=== PATIENT | male | born 1955 | race Caucasian/White ===

== ENCOUNTER 2017-02-12 07:41 | Inpatient (IN) ==
[2017-02-12] MEDS ORDERED: Aspirin 81 MG TAB.CHEW PO ONE (07:51)
--- NOTE | 2017-02-12 07:54 | Emergency Department Note ---
Disposition Clinical Impression: Chest pain Qualifiers: Chest pain type: unspecified Qualified Code(s): R07.9 - Chest pain, unspecified Disposition: Admitted As Inpatient Condition: Good Time of Disposition: 11:12 Chest Pain HPI - General Chief Complaint: ED Chest Pain Stated Complaint: chest pain, back pain Time Seen by Provider: 02/12/17 07:51 Source: patient Vital Signs Reviewed: Yes Nursing Notes Reviewed: Yes - History of Present Illness HPI Narrative: 61-year-old male former smoker c/o chest pain. He mentions the pain started around dinner times, but stated he was actually not feeling that well before dinner. He mentions he did not eat much food at dinner. He describes it as pressure. He states when it started it was 6 out of 10, however he states his gradually worsening and is now 8 out of 10. He mentions he also has pressurre like pain in his back. He mentions nothing is making it better, and has not worsened with exertion. He states it has not migrated, or radiated. He mentions he has a 6/10 headache that started gradually around the same time. He is accompanied by his . They attempted to be seen at the [facility], which was closed, however the [facility] aftercare line advised squad to this emergency Department by micheal. He denies any upper extremity or neck pain, dyspnea, diaphoresis, nausea, abdominal pain. Severity scale (1-10): 8 - Related Data Allergies Allergy/AdvReac Type Severity Reaction Status Date / Time No Known Allergies Allergy Verified 02/12/17 07:51 All systems ED: reviewed and negative except as stated. Constitutional: Denies: fever, chills Eyes: Denies: eye pain ENT ED: Denies: ear pain Cardiovascular: Reports: as per HPI. Denies: dyspnea on exertion, orthopnea Respiratory: Denies: cough, dyspnea Gastrointestinal: Denies: abdominal pain, nausea, vomiting Genitourinary: Denies: dysuria Musculoskeletal: Reports: as per HPI. Denies: joint swelling, arthralgia Integumentary: Denies: rash Neurological: Reports: as per HPI. Denies: weakness, numbness, paresthesias Endocrine: Denies: fatigue Hematological/Lymphatic: Reports: other (BLE swelling chronic). Denies: easy bleeding Allergic/Immunologic: Denies: facial swelling Chest Pain PMH - Past Medical History Medical history: Reports: GERD, hyperlipidemia, hypertension, thyroid disease, other Psychiatric history: Reports: bipolar - Social History Smoking Status: Former smoker (quit 25 years ago) Alcohol use: Reports: occasionally Drug use: Reports: none Physical Exam - General Limitations: no limitations General appearance: alert, in no apparent distress - Head Head exam: normocephalic - Eye Eye exam: Present: EOMI - ENT ENT exam: mucous membranes moist - Neck Neck exam: Present: full ROM - Chest Chest inspection: Present: symmetric chest wall rise - Respiratory Respiratory exam: Present: normal lung sounds bilaterally. Absent: respiratory distress - Cardiovascular Cardiovascular exam: Present: regular rate, normal rhythm - Abdominal Exam Abdominal exam: Present: soft, Non-Tender - Extremities Exam Extremities exam: Present: normal inspection, full ROM, other - Back Exam Back exam: Present: full ROM - Neurological Exam Neurological exam: Present: alert, oriented X3 - Psychiatric Psychiatric exam: Present: normal affect, normal mood - Skin Skin exam: Present: warm, dry, intact, normal color. Absent: rash, cyanosis, diaphoresis Course Course Narrative: 61-year-old male arrives via squad to exam room with c/o of chest pain and back pain. He describes gradually worsening chest pressure over his substernal chest back that started yesterday around dinner time. Pt also mentions h/o of BLE swelling. Patient seen and examined. He is in no acute distress does not look toxic. He is declining pain medications. Vital signs within normal limits. Patient also complains of a headache. He is requesting Tylenol. Also given an aspirin.Workup initiated. - Reevaluation(s) Reevaluation #1: Pt is requesting pain medicine now. Also in discussion, pt mentions he had a negative stress test at [facility] approx 10 years ago, but denies any heart cath, h/o CAD, NE. SL nitro given with no relief. IV pain meds ordered. Time: 08:41 Reevaluation #2: Patient has received morphine, pain improving. Vitals stable. Pt has had no recent cardiac evaluation. Last sterss test 10 years ago. I discussed patient with Dr. Hernández who did see patient, who advised admission for cardiac rule out Time: 09:06 Reevaluation #3: 10:58 Pt discussed with and accepted by hospitalist Dr. Ameda. Time: 10:59 Vital Signs Temperature 98.3 F 02/12/17 07:42 Pulse Rate 58 02/12/17 07:42 Respiratory Rate 17 02/12/17 07:42 Blood Pressure 154/100 02/12/17 07:42 O2 Sat by Pulse Oximetry 98 02/12/17 07:42 Temperature 98.2 F 02/12/17 11:36 Pulse Rate 57 02/12/17 11:36 Respiratory Rate 16 02/12/17 11:44 Blood Pressure 145/90 02/12/17 11:44 O2 Sat by Pulse Oximetry 97 02/12/17 11:36 Oxygen Delivery Oxygen Delivery Room Air Chest Pain - MDM Narrative Medical decision making narrative: 61-year-old male had presented with 2 day history of worsening chest pain. Patient was in no acute distress. His vital stable. EKG showed a complete right bundle-branch block, otherwise no ST changes. Chest x-ray negative. He did describe his pain is worsening since yesterday. With radiation to his back. He has had no recent cardiac evaluations, denies any history of CAD, [place]. Patient's workup and history was discussed with Dr. Hernández who did see patient and advised for admission for cardiac rule out. Patient was septic by hospitalist. All Lab Results (24 Hours) 02/12/17 02/12/17 02/12/17 Range/Units 07:56 07:56 07:56 WBC 6.9 (4.3-11.1) K/mcL RBC 5.65 H (4.19-5.50) M/mcL Hgb 15.4 (12.9-16.9) g/dL Hct 44.0 (37.5-50.1) % MCV 77.9 L (83.0-100.0) fL MCH 27.3 L (28.0-33.3) pg MCHC 35.0 (31.6-35.5) g/dL RDW 13.7 (11.5-14.5) % Plt Count 224 (140-400) K/mcL MPV 9.6 (9.4-12.4) fL Immature Gran % 0.3 (0-4) % Seg Neutrophils % 70.9 % Lymphocytes % 20.5 % Monocytes % 5.5 % Eosinophils % 2.2 % Basophils % 0.6 % Neutrophils # 4.9 (1.6-8.9) K/mcL Lymphocytes # 1.4 (0.6-4.6) K/mcL Monocytes # 0.4 (0.0-1.3) K/mcL Eosinophils # 0.2 (0.0-0.6) K/mcL Basophils # 0.0 (0.0-0.2) K/mcL PT 11.7 (9.4-12.1) Seconds INR 1.1 APTT 30.9 (26.0-36.0) Seconds Sodium (136-145) mEq/L Potassium (3.5-4.5) mEq/L Chloride (98-109) mEq/L Carbon Dioxide (19-29) mEq/L BUN (8-26) mg/dL Creatinine (0.72-1.25) mg/dL Est GFR ( Amer) (> 60) Est GFR (Non-Af Amer) (> 60) BUN/Creatinine Ratio (6-26) Glucose (70-99) mg/dL Calculated Osmolality (280-300) Calcium (8.6-10.8) mg/dL Total Bilirubin (0.2-1.2) mg/dL Direct Bilirubin (0.0-0.5) mg/dL Indirect Bilirubin (0.0-1.2) mg/dL AST (5-34) Units/L ALT (0-55) Units/L Alkaline Phosphatase (38-126) Units/L Troponin I (0-0.03) ng/mL B-Natriuretic Peptide 20 (0-100) pg/mL Serum Total Protein (6.0-8.3) g/dL Albumin (3.5-5.0) g/dL Globulin (2.4-3.5) g/dL Albumin/Globulin Ratio (1.1-2.2) Lipase (8-78) Units/L 02/12/17 02/12/17 Range/Units 07:56 07:56 WBC (4.3-11.1) K/mcL RBC (4.19-5.50) M/mcL Hgb (12.9-16.9) g/dL Hct (37.5-50.1) % MCV (83.0-100.0) fL MCH (28.0-33.3) pg MCHC (31.6-35.5) g/dL RDW (11.5-14.5) % Plt Count (140-400) K/mcL MPV (9.4-12.4) fL Immature Gran % (0-4) % Seg Neutrophils % % Lymphocytes % % Monocytes % % Eosinophils % % Basophils % % Neutrophils # (1.6-8.9) K/mcL Lymphocytes # (0.6-4.6) K/mcL Monocytes # (0.0-1.3) K/mcL Eosinophils # (0.0-0.6) K/mcL Basophils # (0.0-0.2) K/mcL PT (9.4-12.1) Seconds INR APTT (26.0-36.0) Seconds Sodium 140 (136-145) mEq/L Potassium 3.7 (3.5-4.5) mEq/L Chloride 106 (98-109) mEq/L Carbon Dioxide 25 (19-29) mEq/L BUN 9 (8-26) mg/dL Creatinine 1.02 (0.72-1.25) mg/dL Est GFR ( Amer) > 60 (> 60) Est GFR (Non-Af Amer) > 60 (> 60) BUN/Creatinine Ratio 9 (6-26) Glucose 119 H (70-99) mg/dL Calculated Osmolality 290 (280-300) Calcium 9.9 (8.6-10.8) mg/dL Total Bilirubin 0.7 (0.2-1.2) mg/dL Direct Bilirubin 0.3 (0.0-0.5) mg/dL Indirect Bilirubin 0.4 (0.0-1.2) mg/dL AST 18 (5-34) Units/L ALT 18 (0-55) Units/L Alkaline Phosphatase 75 (38-126) Units/L Troponin I 0.00 (0-0.03) ng/mL B-Natriuretic Peptide (0-100) pg/mL Serum Total Protein 7.6 (6.0-8.3) g/dL Albumin 4.1 (3.5-5.0) g/dL Globulin 3.5 (2.4-3.5) g/dL Albumin/Globulin Ratio 1.2 (1.1-2.2) Lipase 29 (8-78) Units/L Chest X-Ray 02/12/17 07:52 IMPRESSION: No acute cardiopulmonary process. D/ / 02/12/2017 08:46:06 Fredy Dallas MD / courtyer Interpreting Provider: Fredy Dallas MD - Lab Data Lab results reviewed: Yes I reviewed the patient's lab results. Result diagrams: 02/12/17 07:56 02/12/17 07:56 Lab Results 02/12/17 02/12/17 02/12/17 Range/Units 07:56 07:56 07:56 WBC 6.9 (4.3-11.1) K/mcL RBC 5.65 H (4.19-5.50) M/mcL Hgb 15.4 (12.9-16.9) g/dL Hct 44.0 (37.5-50.1) % MCV 77.9 L (83.0-100.0) fL MCH 27.3 L (28.0-33.3) pg MCHC 35.0 (31.6-35.5) g/dL RDW 13.7 (11.5-14.5) % Plt Count 224 (140-400) K/mcL MPV 9.6 (9.4-12.4) fL Immature Gran % 0.3 (0-4) % Seg Neutrophils % 70.9 % Lymphocytes % 20.5 % Monocytes % 5.5 % Eosinophils % 2.2 % Basophils % 0.6 % Neutrophils # 4.9 (1.6-8.9) K/mcL Lymphocytes # 1.4 (0.6-4.6) K/mcL Monocytes # 0.4 (0.0-1.3) K/mcL Eosinophils # 0.2 (0.0-0.6) K/mcL Basophils # 0.0 (0.0-0.2) K/mcL PT 11.7 (9.4-12.1) Seconds INR 1.1 APTT 30.9 (26.0-36.0) Seconds Sodium (136-145) mEq/L Potassium (3.5-4.5) mEq/L Chloride (98-109) mEq/L Carbon Dioxide (19-29) mEq/L BUN (8-26) mg/dL Creatinine (0.72-1.25) mg/dL Est GFR ( Amer) (> 60) Est GFR (Non-Af Amer) (> 60) BUN/Creatinine Ratio (6-26) Glucose (70-99) mg/dL Calculated Osmolality (280-300) Calcium (8.6-10.8) mg/dL Total Bilirubin (0.2-1.2) mg/dL Direct Bilirubin (0.0-0.5) mg/dL Indirect Bilirubin (0.0-1.2) mg/dL AST (5-34) Units/L ALT (0-55) Units/L Alkaline Phosphatase (38-126) Units/L Troponin I (0-0.03) ng/mL B-Natriuretic Peptide 20 (0-100) pg/mL Serum Total Protein (6.0-8.3) g/dL Albumin (3.5-5.0) g/dL Globulin (2.4-3.5) g/dL Albumin/Globulin Ratio (1.1-2.2) Lipase (8-78) Units/L 02/12/17 02/12/17 Range/Units 07:56 07:56 WBC (4.3-11.1) K/mcL RBC (4.19-5.50) M/mcL Hgb (12.9-16.9) g/dL Hct (37.5-50.1) % MCV (83.0-100.0) fL MCH (28.0-33.3) pg MCHC (31.6-35.5) g/dL RDW (11.5-14.5) % Plt Count (140-400) K/mcL MPV (9.4-12.4) fL Immature Gran % (0-4) % Seg Neutrophils % % Lymphocytes % % Monocytes % % Eosinophils % % Basophils % % Neutrophils # (1.6-8.9) K/mcL Lymphocytes # (0.6-4.6) K/mcL Monocytes # (0.0-1.3) K/mcL Eosinophils # (0.0-0.6) K/mcL Basophils # (0.0-0.2) K/mcL PT (9.4-12.1) Seconds INR APTT (26.0-36.0) Seconds Sodium 140 (136-145) mEq/L Potassium 3.7 (3.5-4.5) mEq/L Chloride 106 (98-109) mEq/L Carbon Dioxide 25 (19-29) mEq/L BUN 9 (8-26) mg/dL Creatinine 1.02 (0.72-1.25) mg/dL Est GFR ( Amer) > 60 (> 60) Est GFR (Non-Af Amer) > 60 (> 60) BUN/Creatinine Ratio 9 (6-26) Glucose 119 H (70-99) mg/dL Calculated Osmolality 290 (280-300) Calcium 9.9 (8.6-10.8) mg/dL Total Bilirubin 0.7 (0.2-1.2) mg/dL Direct Bilirubin 0.3 (0.0-0.5) mg/dL Indirect Bilirubin 0.4 (0.0-1.2) mg/dL AST 18 (5-34) Units/L ALT 18 (0-55) Units/L Alkaline Phosphatase 75 (38-126) Units/L Troponin I 0.00 (0-0.03) ng/mL B-Natriuretic Peptide (0-100) pg/mL Serum Total Protein 7.6 (6.0-8.3) g/dL Albumin 4.1 (3.5-5.0) g/dL Globulin 3.5 (2.4-3.5) g/dL Albumin/Globulin Ratio 1.2 (1.1-2.2) Lipase 29 (8-78) Units/L - Radiology Data Radiology results reviewed: Yes I reviewed the patient's radiology results. No acute cardiopulmonary issues - EKG Data EKG attestation: Yes I reviewed and interpreted this EKG. EKG results narrative: sinus bradycardia with vent rate 59bpm, incomplete RBBB,no actue ST changes Heart Score - Score History: Slightly Suspicious EKG: Non Specific repolarisation Disturbance Age: 45-65 Risk Factors: Equal/Greater than 3 risk factor or history of atherosclerotic disease Troponin: Less than normal limit HEART Score Total: 4 Attestation Statement - Attestation Attestation: For this encounter, I have reviewed the BASS SINGER or PA documentation, treatment plan, and medical decision making; and I have had face to face time with this patient. 61-year-old who comes in complaining of pressure-like chest pain began last night rated about 6-7 out of 10 and then this morning it increased in pain patient has some cardiac risk factors. He's not had any recent evaluation last stress test was 10 years ago. Physical exam the lungs are clear cardiovascular exams unremarkable. EKG shows no acute change troponin is negative however with risk factors were going to admit rule out.
[2017-02-12 08:04] LABS: Basophils % 0.6 %; Eosinophils # 0.2 K/mcL (0.0-0.6); Eosinophils % 2.2 %; Hemoglobin 15.4 g/dL (12.9-16.9); Immature Granulocytes % 0.3 % (0-4); Lymphocytes # 1.4 K/mcL (0.6-4.6); Lymphocytes % 20.5 %; Mean Corpuscular Hemoglobin 27.3 pg (28.0-33.3); Mean Corpuscular Volume 77.9 fL (83.0-100.0); Mean Platelet Volume 9.6 fL (9.4-12.4); Monocytes # 0.4 K/mcL (0.0-1.3); Monocytes % 5.5 %; Neutrophils # 4.9 K/mcL (1.6-8.9); Platelet Count 224 K/mcL (140-400); Red Blood Count 5.65 M/mcL (4.19-5.50); Red Cell Distribution Width 13.7 % (11.5-14.5); Segmented Neutrophils % 70.9 %
[2017-02-12 08:11] LABS: INR 1.1; Prothrombin Time 11.7 Seconds (9.4-12.1)
[2017-02-12 08:14] LABS: Activated Partial Thrombo Time 30.9 Seconds (26.0-36.0)
[2017-02-12 08:18] LABS: Alanine Aminotransferase 18 Units/L (0-55); Albumin 4.1 g/dL (3.5-5.0); Albumin/Globulin Ratio 1.2 (1.1-2.2); Alkaline Phosphatase 75 Units/L (38-126); Aspartate Amino Transferase 18 Units/L (5-34); BUN/Creatinine Ratio 9 (6-26); Bilirubin,Direct 0.3 mg/dL (0.0-0.5); Bilirubin,Indirect 0.4 mg/dL (0.0-1.2); Bilirubin,Total 0.7 mg/dL (0.2-1.2); Blood Urea Nitrogen 9 mg/dL (8-26); Calcium 9.9 mg/dL (8.6-10.8); Carbon Dioxide 25 mEq/L (19-29); Chloride 106 mEq/L (98-109); Globulin 3.5 g/dL (2.4-3.5); Glucose 119 mg/dL (70-99); Osmolality,Calculated 290 (280-300); Potassium 3.7 mEq/L (3.5-4.5); Sodium 140 mEq/L (136-145); Total Protein 7.6 g/dL (6.0-8.3); eGFR For African Americans > 60 (> 60); eGFR For Non-African Americans > 60 (> 60)
[2017-02-12] MEDS ORDERED: Nitroglycerin 0.4 MG TAB.SUBL SL PRN (08:19)
[2017-02-12] MEDS ORDERED: *HR* Morphine 2 MG/ML SYRINGE IVP ONE (08:40)
[2017-02-12 08:43] LABS: Lipase 29 Units/L (8-78)
[2017-02-12] MEDS ORDERED: Acetaminophen 325 MG TABLET PO PRN (11:36)
[2017-02-12] MEDS ORDERED: Naloxone 0.4 MG/ML INJ IVP PRN (11:36)
[2017-02-12] MEDS ORDERED: *HR* Morphine 2 MG/ML SYRINGE IVP PRN (11:36)
--- NOTE | 2017-02-12 11:50 | Internal Med History&Physical ---
<Crocker,Vannesa Criss - Last Filed: 02/12/17 11:48> Date of Encounter: 02/12/17 Time of Encounter: 11:48 Assessment and Plan (1) Chest pain Current visit: Yes Status: Acute That started eating prior to admission and radiated to shoulder blades, relieved with nitroglycerin morphine in the ED. Last stress test over 10 years ago. Initial troponin negative, EKG with sinus bradycardia and right bundle branch block. Chest x-ray and BNP normal. Cycle troponin, echo and stress test pending. Consult cardiology if needed. Continue ASA, when necessary morphine, supplemental O2 PRN. Lipid panel, TSH, Hgb A1c pending Qualifiers: Chest pain type: unspecified Qualified Code(s): R07.9 - Chest pain, unspecified (2) Essential hypertension Current visit: Yes Status: Acute Per history. BP variable while in the ED. Resume home BP medications once confirmed, monitor BP and titrate PRN (3) Hypothyroid Current visit: Yes Status: Acute per hx, control unknown. Cont home Synthroid once home medications verified. TSH pending Qualifiers: Hypothyroidism type: acquired Qualified Code(s): E03.9 - Hypothyroidism, unspecified (4) Neuropathy Current visit: Yes Status: Acute Per history, symptoms stable with home gabapentin. Resume home medication once verified. (5) Bipolar disorder Current visit: Yes Status: Acute Per history. Symptoms stable on home medications. Continue home regimen once medications verified. Qualifiers: Active/Remission status: remission status unspecified Qualified Code(s): F31.9 - Bipolar disorder, unspecified (6) DVT prophylaxis Current visit: Yes Status: Acute Heparin. Internal Medicine - H&P: HPI Chief complaint: Chest pain Admitted From: Home History of present illness: Mr. Victoria is a 61 year old male with past medical history hypertension, neuropathy, hypothyroidism and bipolar who presented to [facility] on 02/12/2017 with complaints of chest pain. He was placed in observation status for ACS rule out. Information obtained from chart review and patient report. Patient reports midsternal chest pain started yesterday evening described pain as pressure radiated to between shoulder blades he was sitting still when chest pain started. Still with chest pain however now decreased to 3/10, relieved with morphine in the ED. No shortness of breath no nausea vomiting or diaphoresis. Past Med Surg Social Fam HX - Past Medical History Medical history: GERD, hyperlipidemia, hypertension, thyroid disease, other Psychiatric history: bipolar - Past Surgical History Surgical History: non-contributory - Social History Smoking Status: Former smoker (quit 25 years ago) Alcohol use: occasionally Drug use: none - Additional Family History Additional family history: Reviewed and noncontributory Internal Medicine - H&P: Meds Allergies No Known Allergies Allergy (Verified 02/12/17 07:51) All Systems PM: A 10-system review of systems was performed and is negative for pertinent findings except as documented above in the HPI. - Constitutional Constitutional: no chills, no fever(s), no night sweats - EENT Eyes: no change in vision, no discharge, no pain, no photophobia Ears: no ear discharge, no ear pain, no tinnitus Nose, mouth and throat: no dysphagia, no nasal discharge, no neck pain, no sore throat - Cardiovascular Cardiovascular ROS IM: chest pain, no diaphoresis, no dyspnea, no lightheadedness, no palpitations, no syncope - Respiratory Respiratory: no cough, no dyspnea, no wheezing, no excessive phlegm production - Gastrointestinal Gastrointestinal: no abdominal pain, no diarrhea, no hematemesis, no hematochezia, no melena, no nausea, no vomiting - Musculoskeletal Musculoskeletal ROS IM: no numbness, no tingling - Integumentary Integumentary IM: no rash, no unusual bruising - Neurological Neurological ROS: no confusion, no convulsions, no focal weakness, no numbness, no tingling, no tremor(s) - Hematologic/Lymphatic Hematologic/Lymphatic: no easy bruising - Constitutional Vitals: Temp Pulse Resp BP Pulse Ox 98.3 F 62 16 145/90 97 02/12/17 07:42 02/12/17 11:33 02/12/17 11:44 02/12/17 11:44 02/12/17 11:33 General appearance: Present: A&O X 3, no acute distress - Head Head exam: Present: atraumatic, normocephalic - Eye Eye exam: Present: PERRL, conjuntiva pink, sclera anicteric Pupils: Present: PERRL - Neck Neck exam general surgery: Present: supple, trachea midline. Absent: lymphadenopathy - Respiratory Respiratory exam: Present: CTAB. Absent: accessory muscle use, rales, rhonchi, wheezes - Cardiovascular Cardiovascular exam: Present: RRR, +S1, +S2. Absent: diastolic murmur, gallop, rubs, systolic murmur - GI/Abdominal GI/Abdominal exam: Present: normal bowel sounds, soft, no peritoneal signs. Absent: distended, tenderness - Extremities Exam Extremities exam: Present: warm, radial pulses palpable and symetrical. Absent : calf tenderness, cyanotic, pedal edema - Neurological Exam Neurological exam: Present: CN II-XII intact, oriented X3, no focal deficits. Absent: pronater drift, facial droop, speech deficit - Skin Skin exam: Present: dry, intact Internal Med - H&P Results - Labs CBC & Chem 7: 02/12/17 07:56 02/12/17 07:56 - EKG Data -: EKG Interpreted by Myself - EKG Data Prior EKG available for review: no EKG comments: 02/12/17 11:52 Right bundle-branch block with sinus bradycardia <Theresa Montenegro - Last Filed: 02/12/17 13:28> Date of Encounter: 02/12/17 Time of Encounter: 13:15 Internal Medicine - H&P: HPI History of present illness: Mr. Victoria is a 61 year old male All Systems PM: A 10-system review of systems was performed and is negative for pertinent findings except as documented above in the HPI. - Constitutional Vitals: Temp Pulse Resp BP Pulse Ox 98.2 F 57 16 145/90 97 02/12/17 11:36 02/12/17 11:36 02/12/17 11:44 02/12/17 11:44 02/12/17 11:36 Internal Med - H&P Results - Labs CBC & Chem 7: 02/12/17 07:56 02/12/17 07:56 Labs: Cardiac Enzymes 02/12/17 Range/Units 12:53 Troponin I 0.00 (0-0.03) ng/mL - Attending Attestation I examined this patient and my medical decision-making was reviewed with the nurse practitioner. I agree with the documented history of present illness, review of systems, past medical, surgical social and family histories and examination findings, disposition and treatment plan as described above except to any changes set forth below. 61-year-old male patient with history of essential hypertension presented to the ER with complaints of chest pain reagent to the back of began yesterday evening. Progressively worsening. This is now improved after he received nitroglycerin and morphine. On examination, heart sounds are within normal limits. Respiratory exam is also normal. Precordial chest pain: We will observe patient for chest pain. Trend troponins. Telemetry. Stress test in a.m. Essential hypertension: Monitor blood pressure. Continue home medications.
[2017-02-12] MEDS: *HR* Heparin 5,000 UNIT/ML VIAL SQ SCH ×2 (15:28→22:30)
--- NOTE | 2017-02-12 18:02 | Electrocardiograph Report ---
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
[2017-02-12] MEDS ORDERED: Famotidine 20 MG TABLET PO SCH (21:00)
[2017-02-12] MEDS ORDERED: ARIPiprazole 5 MG TABLET PO SCH (21:00)
[2017-02-13 03:52] LABS: Basophils % 0.6 %; Eosinophils # 0.2 K/mcL (0.0-0.6); Eosinophils % 2.9 %; Hemoglobin 14.8 g/dL (12.9-16.9); Immature Granulocytes % 0.3 % (0-4); Lymphocytes % 29.4 %; Mean Corpuscular HGB Conc 34.4 g/dL (31.6-35.5); Mean Corpuscular Hemoglobin 26.8 pg (28.0-33.3); Mean Corpuscular Volume 77.9 fL (83.0-100.0); Mean Platelet Volume 9.6 fL (9.4-12.4); Monocytes # 0.5 K/mcL (0.0-1.3); Monocytes % 7.1 %; Neutrophils # 4.1 K/mcL (1.6-8.9); Platelet Count 214 K/mcL (140-400); Red Blood Count 5.52 M/mcL (4.19-5.50); Red Cell Distribution Width 13.4 % (11.5-14.5); Segmented Neutrophils % 59.7 %
[2017-02-13 04:02] LABS: Hemoglobin A1C 5.4 %
[2017-02-13 04:08] LABS: Alanine Aminotransferase 15 Units/L (0-55); Albumin 3.8 g/dL (3.5-5.0); Albumin/Globulin Ratio 1.2 (1.1-2.2); Alkaline Phosphatase 64 Units/L (38-126); Aspartate Amino Transferase 16 Units/L (5-34); BUN/Creatinine Ratio 11 (6-26); Bilirubin,Total 0.9 mg/dL (0.2-1.2); Blood Urea Nitrogen 10 mg/dL (8-26); Calcium 9.5 mg/dL (8.6-10.8); Carbon Dioxide 24 mEq/L (19-29); Chloride 106 mEq/L (98-109); Chol/HDL Ratio 4.9 (0-4.9); Cholesterol 168 mg/dL (< 200); Globulin 3.2 g/dL (2.4-3.5); Glucose 100 mg/dL (70-99); HDL Cholesterol 34 mg/dL (40-59); LDL Cholesterol,Calculated 104 mg/dL (0-99); Osmolality,Calculated 289 (280-300); Potassium 3.6 mEq/L (3.5-4.5); Sodium 140 mEq/L (136-145); Triglycerides 152 mg/dL (< 150); eGFR For African Americans > 60 (> 60); eGFR For Non-African Americans > 60 (> 60)
[2017-02-13] MEDS: *HR* Heparin 5,000 UNIT/ML VIAL SQ SCH ×2 (06:24→12:23)
[2017-02-13] MEDS: Regadenoson 0.4 MG/5 ML SYRINGE IVP ONE ×2 (07:55→09:49)
[2017-02-13] MEDS ORDERED: amLODIPine 5 MG TABLET PO SCH (09:00)
[2017-02-13] MEDS ORDERED: Aspirin Enteric Coated 81 MG Tablet PO SCH (09:00)
[2017-02-13] MEDS ORDERED: Furosemide 20 MG TABLET PO SCH (09:00)
[2017-02-13] MEDS ORDERED: lamoTRIgine 100 MG TABLET PO SCH (09:00)
--- NOTE | 2017-02-13 12:53 | Nuclear Medicine Stress Report ---
Regadenoson Nuclear Stress Name: Callum Victoria Date of Study: 02/13/2017 Date: 1955 Ht: 67.0 in Medical Record#: [id number] Age: 61 Wt: 175.0 lb Gender: Male Order #: [id number] Location: [facility] Room: [facility] Supervising Provider: Ángel García CNP Reading Physician: Mauro Hollingsworth MD, [facility] Ordering Physician: Lissett Doyle CNP Primary Care Physician: [facility] Stress Technologist: Gibson Rodrigues CRT Grinder Dresser: Geoffrey Griffiths Indications: Chest Pain Impression: Baseline elevated blood pressure (164/90). Normal hemodynamic responses to pharmacologic stress. Gated LVEF > 70%. Perfusion imaging was negative for ischemia or infarct. History: Hypertension Hypercholesteremia History of Smoking Stress Test Summary: Stress Test Type: Pharmacologic Baseline Information: Initial Heart Rate: 66 Blood Pressure: 164/90 Stress Information: Test Terminated Due to (primary): As per protocol Maximum Blood Pressure: 158/80 Maximum Heart Rate: 96 Percent Maximum Heart Rate Achieved: 60 Double Product: [id number] Symptoms: No chest symptoms Nuclear Summary: SPECT myocardial perfusion imaging using Tc99m Sestamibi given intravenously was performed at rest and following cardiac stress testing. The resting images were obtained following initial dose of 11.6 mCi. Following stress an additional dose of 30 mCi was given at peak exercise or 30 seconds post regadenoson infusion. Findings: Stress Note * Resting ECG demonstrated normal sinus rhythm. * No baseline arrhythmias were noted. * Patient had no chest pain during stress. * No arrhythmias were noted during stress. * No significant ECG changes with regadenoson. Hemodynamic responses * Baseline elevated blood pressure (164/90). Normal hemodynamic responses to pharmacologic stress. Study Quality * Study quality is good. Gated EF > 70% * Gated LVEF > 70%. Left Ventricle * The left ventricle is not dilated. * Normal Segmental Perfusion in rest. * Normal segmental perfusion in stress. TID * No evidence of transient ischemic dilatation. Updated by Mauro Hollingsworth MD, [facility] on 02/13/2017 12:47:00 PM electronically signed on 02/13/2017 12:47:21 PM with status of Final
--- NOTE | 2017-02-13 14:17 | Discharge Summary ---
Date of Encounter: 02/13/17 Time of Encounter: 13:10 - Discharge Diagnosis (1) Chest pain Priority: Primary Status: Acute Comments: Patient presented to the emergency department last night with 3 day history of midsternal chest pressure with radiation to bilateral shoulder blades. He said the pain has been present much constant, she states that nothing makes the pain worse, nothing makes the pain better. He said that it is significantly improved since arrival, now rates it 1/10. Pain is not reproducible with movement, exertion, or palpation. Troponins were negative. EKG sinus bradycardia with right bundle branch block. Chest x-ray was negative. Echocardiogram showed LVEF of 60-65%, normal LV chamber size, wall thickness, and function. Mild diastolic dysfunction, normal RV structure and function, no evidence of pulmonary hypertension or valvular dysfunction. Stress test was done today, gated LVEF is greater than 70%, perfusion imaging was negative for ischemia or infarct. Patient states that he has been nonadherent to his medication regimen frequently over the last few weeks, and reports no medications at all for the last 3 days. He reports he takes 14 pills a day has taken none for the last 3 days, other than what he was given here. He says he gets busy and forgets to take them in the morning and at bedtime. Chest X-Ray 02/12/17 07:52 IMPRESSION: No acute cardiopulmonary process. D/ / 02/12/2017 08:46:06 Fredy Dallas MD / denzel Interpreting Provider: Fredy Dallas MD Qualifiers: Chest pain type: unspecified Qualified Code(s): R07.9 - Chest pain, unspecified (2) Essential hypertension Priority: Secondary Status: Chronic Comments: Patient's blood pressure is borderline at goal for age. Patient has been nonadherent to medication regimen. Patient follows primary care at the [place]. (3) Neuropathy Priority: Secondary Status: Chronic Comments: Chronic appearing continue home medications. (4) Hypothyroid Priority: Secondary Status: Chronic Comments: Chronic. Continue home medications. TSH is within normal limits. Qualifiers: Hypothyroidism type: acquired Qualified Code(s): E03.9 - Hypothyroidism, unspecified (5) Bipolar disorder Priority: Secondary Status: Chronic Comments: Continue home medications. Qualifiers: Active/Remission status: remission status unspecified Qualified Code(s): F31.9 - Bipolar disorder, unspecified (6) DVT prophylaxis Priority: Secondary Status: Acute Comments: Heparin subcutaneous daily - Discharge Medications Home Medications: Amlodipine Besylate 10 mg PO DAILY 02/12/17 [History] Aripiprazole [Abilify] 15 mg PO HS 02/12/17 [History] Aspirin [Lo-Dose Aspirin EC] 81 mg PO DAILY 02/12/17 [History] Carboxymethylcellulose Sodium [Refresh Liquigel] 1 drop OP QID 02/12/17 [History ] Cholecalciferol (D-3) [Vitamin D] 1,000 unit PO DAILY 02/12/17 [History] Etodolac 400 mg PO BID 02/12/17 [History] Furosemide [Lasix] 20 mg PO DAILY 02/12/17 [History] Gabapentin [Neurontin] 600 mg PO BID 02/12/17 [History] Ketotifen Fumarate [Eye Itch Relief] 1 drop OP BID 02/12/17 [History] Levothyroxine [Synthroid] 75 mcg PO DAILY 02/12/17 [History] Omeprazole [PriLOSEC] 40 mg PO QAM 02/12/17 [History] Potassium Chloride [Klor-Con 10] 10 meq PO DAILY 02/12/17 [History] Ranitidine HCl [Zantac] 300 mg PO HS 02/12/17 [History] Simvastatin [Zocor] 20 mg PO HS 02/12/17 [History] lamoTRIgine [Lamictal] 100 mg PO DAILY 02/12/17 [History] Allergies/Adverse Reactions: Allergies No Known Allergies Allergy (Verified 02/12/17 07:51) Procedures/tests Complete & Pending: Procedures Performed prior 72 hours Category Date Time Status NM javier perf SPECT multi [NM] Routine Exams 02/13/17 05:00 Taken EV echocardiogram Stat Y 02/12/17 11:37 Completed SP pharm nuclear stress Routine Y 02/13/17 08:00 Completed Date of admission: 02/12/17 11:30 Primary care [facility] Discharging clinician: Lissett Doyle Anticipated date of discharge: 02/13/17 - Patient Status Disposition: Home, Self-Care Functional capacity at discharge: independent ambulation Overall status at discharge: patient is progressing back to baseline - Discharge Instructions Follow Up With: [facility] [Primary Care Provider] - Additional Instructions: Please follow-up with her primary care physician in the next 7-10 days for follow-up visit. Please remember to take her medications as written at home. Return to the emergency department as needed if her symptoms return, or if you have any other symptoms, concerns, or problems. - Diet and Activity Activity: resume usual activities as tolerated Diet: advance to your usual diet Interval History: Patient presented to the emergency room last night with complaint of midsternal chest pressure radiating to bilateral shoulder blades. Admission note reports it was relieved with nitroglycerin and morphine in the emergency department, however, patient relays to me that the pain has been pretty much constant, though significantly better than on arrival. He now rates it 1/10. He denies nausea, vomiting, diarrhea, diaphoresis. 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 Physical exam is unremarkable. Pollens were negative, chest x-ray was negative, BMP was within normal limits. Echocardiogram with LVEF 60-65%, normal LV chamber size, wall thickness and function. Mild diastolic dysfunction. Normal right ventricular structure and function, no evidence of pulmonary hypertension or valvular dysfunction. Stress test showed gated LVEF greater than 70%, perfusion imaging was negative for ischemia or infarct. Patient's labs are within normal limits, lipid profile slightly elevated. Patient will continue aspirin and statin at home. He is not requiring supplemental oxygen. Patient states he will follow up with cardiology at the [facility]. He denies having seen a psych tech before, however he states he will be able to see one. He does not want to stay and see cardiology here, he is ready to go home. Patient stable for discharge. Hospital course: Mr. Victoria is a 61 year old male - Time Spent with Patient Total time spent providing and/or coordinating discharge services: Less than 30 minutes - Constitutional Vitals: Temp Pulse Resp BP Pulse Ox 98.0 F 62 16 159/94 97 02/13/17 11:22 02/13/17 11:22 02/13/17 11:22 02/13/17 11:22 02/13/17 11:22 General appearance: Present: A&O X 3, no acute distress - Head Head exam: Present: normal inspection - Neck Neck exam general surgery: Present: normal inspection. Absent: lymphadenopathy , tenderness - Respiratory Respiratory exam: Present: CTAB. Absent: chest wall tenderness, rales, rhonchi , wheezes - Cardiovascular Cardiovascular exam: Present: RRR, +S1, +S2. Absent: diastolic murmur, systolic murmur - GI/Abdominal GI/Abdominal exam: Present: normal bowel sounds, soft. Absent: distended, hepatomegaly, tenderness - Extremities Exam Extremities exam: Present: normal inspection, warm, radial pulses palpable and symetrical. Absent: mottling, pedal edema, tenderness - Neurological Exam Neurological exam: Present: alert, oriented X3, no focal deficits, facial droop , speech deficit
[2017-02-13 15:48] VITALS: BP 155/84
== END 2017-02-13 17:30 | disposition home or self-care (01) | DRG 313 ==
LOC: EMEROO 07:41 → 3BNU 11:30
PROVIDERS: ADMIT Internal Medicine; ATTEND Registered Nurse